=== PATIENT | female | born 2005 | race African-American/Black ===

== ENCOUNTER 2025-02-04 08:46 | Emergency (ER) | payer OTHER ==
[~2025-02-04] VITALS: Ht 167.6 cm; Wt 64.0 kg
[2025-02-04 09:38] LABS: BASOPHILS % 0.8 % (0.0-2.0); EOSINOPHILS % 0.8 % (0.0-5.0); HEMATOCRIT. 40.7 % (36.0-48.0); HEMOGLOBIN. 14.0 g/dL (12.0-16.0); LYMPHOCYTES % 25.0 % (20.0-50.0); MEAN PLATELET VOLUME 7.9 fl (7.4-10.4); MONOCYTES % 8.9 % (2.0-8.0); NEUTROPHILS % 64.5 % (40.0-76.0); PLATELET 407 x1000/uL (130-400); RED BLOOD CELL COUNT 4.79 mill/uL (4.2-5.4); RED CELL DISTRIBUTION WIDTH 13.4 % (11.6-14.6)
[2025-02-04 09:52] LABS: CREATININE 0.9 mg/dL (0.6-1.0); UREA NITROGEN BLOOD 6 mg/dL (9-23)
[2025-02-04] MEDS: ONDANSETRON HCL 4MG/2ML INJ IV NR (09:52)
[2025-02-04] MEDS: ACETAMINOPHEN 1000MG/100ML 100 ML IV NR (09:52)
[2025-02-04 09:54] LABS: ASPARTATE AMINOTRANSFERASE 17 IU/L (<34); BILIRUBIN DIRECT 0.1 mg/dL (<=3.0)
[2025-02-04 09:55] LABS: BILIRUBIN TOTAL 0.5 mg/dL (0.1-1.0); PROTEIN TOTAL 7.3 g/dL (6.0-8.3)
[2025-02-04 09:58] LABS: HCG SCREEN NEGATIVE
[2025-02-04 10:38] LABS: CLARITY URINE CLEAR (CLEAR); COLOR URINE YELLOW (YELLOW); GLUCOSE URINE NEGATIVE (NEGATIVE); KETONES URINE NEGATIVE (NEGATIVE); LEUKOCYTE ESTERASE URINE NEGATIVE (NEGATIVE); NITRITE URINE NEGATIVE (NEGATIVE); OCCULT BLOOD URINE 3+ (NEGATIVE); PH URINE 7.0 (4.5-8.0); PROTEIN URINE 3+ (NEGATIVE); SPECIFIC GRAVITY URINE 1.025 (1.005-1.030); UROBILINOGEN URINE 0.2 E.U./dL (0.2-1.0)
[2025-02-04 10:48] LABS: *AMPHETAMINES SCREEN URINE NEGATIVE (NEGATIVE); *BARBITURATES SCREEN URINE NEGATIVE (NEGATIVE); *BENZODIAZEPINES SCREEN URINE NEGATIVE (NEGATIVE); *COCAINE SCREEN URINE NEGATIVE (NEGATIVE)
[2025-02-04 10:49] LABS: CANNABINOID URINE SCREEN NEGATIVE (NEGATIVE); ECSTASY MDMA SCREEN URINE NEGATIVE (NEGATIVE); METHADONE URINE SCREEN NEGATIVE (NEGATIVE); OPIATES URINE SCREEN NEGATIVE (NEGATIVE); PHENCYCLIDINE URINE SCREEN NEGATIVE (NEGATIVE)
[2025-02-04 11:13] LABS: BACTERIA URINE NONE SEEN; RBC URINE TNTC /hpf (0-2); SQUAMOUS EPITHELIAL CELL URINE 1+ /lpf (RARE/1+); YEAST URINE NONE SEEN
[2025-02-04] MEDS ORDERED: ONDA4TAB50 PO (11:49)
[2025-02-04] MEDS ORDERED: TOPUD PO (11:49)
[2025-02-04 11:59] VITALS: BP 110/70; PULSE 64; RESP 15; TEMP 37; O2SAT 100
== END 2025-02-04 12:09 | disposition home or self-care (01) ==
LOC: ER 08:46 → CANBEDREQ 11:37 → ER 12:09
DX: R10.A2 Flank pain, left side (principal); R11.2 Nausea with vomiting, unspecified; J45.909 Unspecified asthma, uncomplicated; F12.90 Cannabis use, unspecified, uncomplicated; Z79.899 Other long term (current) drug therapy
CPT/HCPCS: 80076; 80305; 80048; 81003; 80320; 84703; 83690; 85025; 36415; 74176; 96365; 96375; 99285; J2405; Z7610; A6449; G0480; J0131

== ENCOUNTER 2025-02-14 12:30 | Emergency (ER) | payer OTHER ==
[~2025-02-14] VITALS: Ht 160 cm; Wt 61.0 kg
[~2025-02-14 12:30] MED LIST: ONDA4TAB50 PO; TOPUD PO
[2025-02-14 12:35] VITALS: O2SAT 100
[2025-02-14] MEDS ORDERED: NAPR-677 MT (13:21)
[2025-02-14 13:48] VITALS: BP 104/70; PULSE 64; RESP 14; TEMP 36.5; O2SAT 99
== END 2025-02-14 13:53 | disposition home or self-care (01) ==
LOC: ER 12:30
DX: M79.644 Pain in right finger(s) (principal); J45.909 Unspecified asthma, uncomplicated
CPT/HCPCS: 73120; 99283